=== PATIENT | female | born 1985 | race African-American/Black ===

== ENCOUNTER → 2017-07-14 | Outpatient (CLI) | payer MEDICAID | LOC: LAB 12:37 | PROVIDERS: ATTEND Nurse Practitioner Acute Care | DX: Z53.8 Procedure and treatment not carried out for other reasons (principal) ==

== ENCOUNTER 2017-12-31 02:28 | Emergency (ER) | payer MEDICAID ==
[2017-12-31] MEDS ORDERED: ACETAMINOPHEN 325 MG TABLET PO ONE (02:31)
[2017-12-31 02:36] VITALS: BP 106/69
--- NOTE | 2017-12-31 03:00 | ER Document Report ---
HPI - HPI Pain Level: 5 Notes: Patient is a 31-year-old female presents to the ED complaining of right great toe pain status post injury about 6 hours ago. Patient states that she was switched to a screening out when the window pane dropped and landed on her foot/ toe. Patient states that she has had swelling since then. Pain does not radiate. Patient states that she is still able to limp around and is weightbearing. Denies any drug allergies. No other concerns or complaints at this time. No other significant past medical history. Denies any headache, fever, URI, sore throat, chest pain, palpitations, syncope, cough, shortness of breath, wheeze, dyspnea, abdominal pain, nausea/vomiting/diarrhea, dysuria, hematuria, numbness/tingling, muscle paralysis/weakness, or rash. - ROS Systems Reviewed and Negative: Yes All other systems reviewed and negative - REPRODUCTIVE Reproductive: DENIES: : Past Medical History - Social History Smoking Status: Never Smoker Family History: Arthritis, CVA, DM, Hyperlipidemia, Hypertension, Malignancy, Thyroid Disfunction Pulmonary Medical History: Reports: Hx Asthma Endocrine Medical History: Reports: Hx Diabetes Mellitus Type 2 Past Surgical History: Reports: Hx Tubal Ligation - Immunizations Hx Diphtheria, Pertussis, Tetanus Vaccination: Yes - 2008 [facility] Provider Document - CONSTITUTIONAL Agree With Documented VS: Yes Notes: PHYSICAL EXAMINATION: GENERAL: Well-appearing, well-nourished and in no acute distress. LUNGS: Breath sounds clear to auscultation bilaterally and equal. No wheezes rales or rhonchi. HEART: Regular rate and rhythm without murmurs, rubs, gallops. Musculoskeletal: Rt foot/toe: + mild swelling and tenderness to the 1st MTP joint and 1st digit. LROM to passive/active flexion. Strength 5+/5. N/V intact distal. No other bony tenderness. Achilles intact. Extremities: No cyanosis, clubbing, or edema b/l. Peripheral pulses 2+. Capillary refill less than 3 seconds. NEUROLOGICAL: Normal speech, limping gait. Normal sensory, motor exams PSYCH: Normal mood, normal affect. SKIN: Warm, Dry, normal turgor, no rashes or lesions noted. - INFECTION CONTROL TRAVEL OUTSIDE OF THE [place] IN LAST 30 DAYS: No Course - Re-evaluation Re-evalutation: 06/02/18 03:28 Patient is an afebrile, well-hydrated, 32-year-old female who presents to the ED with right first digit pain of the foot status post crush injury. I suspect contusion. Vitals are acceptable. PE is otherwise unremarkable for any neurovascular compromise, obvious tendon/ligament rupture, obvious fracture/ dislocation, septic joint. X-ray was unremarkable for any acute pathology. Patient received Tylenol p.o. today. Postop shoe and crutches were provided. No other labs or imaging warranted at this time based on H&P. Recommend conservative measures for symptoms. rx for naproxen. Recheck with your PCM in 3 -5 days. Consider consult orthopedic/physical therapy. Return to the ED with any worsening/concerning symptoms otherwise as reviewed in discharge. Patient is in agreement. - Vital Signs Vital signs: Temp Pulse Resp BP Pulse Ox 97.9 F 94 17 106/69 99 12/31/17 02:35 12/31/17 02:35 12/31/17 02:35 12/31/17 02:35 12/31/17 02:35 Discharge - Discharge Clinical Impression: Toe pain, right Condition: Stable Disposition: HOME, SELF-CARE Instructions: Contusion ([facility]) Additional Instructions: Rest, Ice, Compression, Elevation Use crutches/shoe as directed Tylenol/ibuprofen as needed Light stretches daily Strength exercises as able Moist heat and massage may help F/u with your PCP in 3-5 days for a recheck Consider consult(s) with Orthopedics/physical therapy for ongoing/worsening symptoms Return to the ED with any worsening symptoms and/or development of fever, headache, chest pain, palpitations, syncope, shortness of breath, trouble breathing, abdominal pain, n/v/d, muscle weakness/paralysis, numbness/tingling, swelling, redness, or other worsening symptoms that are concerning to you. Prescriptions: Naproxen 500 mg PO BID PRN #30 tablet PRN Reason: Referrals: WILLARD KNUTSON NP [Primary Care Provider] - Follow up as needed [facility] [Provider Group] - Follow up as needed
--- NOTE | 2017-12-31 03:27 | RADIOLOGY REPORT (SQ) ---
EXAM DESCRIPTION: Right foot, 3 views CLINICAL HISTORY: rt toe pain s/p crush injury 1st digit COMPARISON: None. FINDINGS: 3 views of the right foot. No acute fracture or dislocation. Normal osseous mineralization. Dorsal soft tissue edema. Tarsals and metatarsals have appropriate alignment. IMPRESSION: No acute fracture or dislocation.
== END 2017-12-31 04:08 | disposition home or self-care (01) ==
LOC: ER 02:28
DX: S97.111A Crushing injury of right great toe, initial encounter (principal); M79.674 Pain in right toe(s); W20.8XXA Other cause of strike by thrown, projected or falling object, initial encounter; E11.9 Type 2 diabetes mellitus without complications; J45.909 Unspecified asthma, uncomplicated
CPT/HCPCS: 99283; 73630; J3490

== ENCOUNTER 2018-12-27 17:06 | Emergency (ER) | payer SELFPAY ==
[2018-12-27 18:11] VITALS: BP 111/70
--- NOTE | 2018-12-27 18:58 | ER Document Report ---
HPI - HPI Patient complains to provider of: vaginal pressure Time Seen by Provider: 12/27/18 18:49 Onset: Other - since tuesday Onset/Duration: Persistent Quality of pain: Pressure Severity: Severe Pain Level: 4 Context: Patient presents to the emergency department with complaints of pain and pressure in her vaginal area lots of pressure when urinating and lower back pain since past Tuesday. She has been taking Azo without relief of symptoms. She reports increased pain when she voids but otherwise feels like there is pressure like something is going to fall out of her vagina. She denies fever vomiting reports some nausea reports very little diarrhea. Denies vaginal discharge. Reports her vaginal area feels swollen. Associated Symptoms: None Exacerbated by: Other - voiding Relieved by: Denies Similar symptoms previously: No Recently seen / treated by doctor: No - URINARY Urinary: REPORTS: Urgency, Frequency - REPRODUCTIVE Reproductive: DENIES: : Past Medical History - General Information source: Patient Last Menstrual Period: 12/11/18 - Social History Smoking Status: Current Every Day Smoker Chew tobacco use (# tins/day): No Frequency of alcohol use: Occasional Drug Abuse: None Lives with: Family Family History: Arthritis, CVA, DM, Hyperlipidemia, Hypertension, Malignancy, Thyroid Disfunction Patient has suicidal ideation: No Patient has homicidal ideation: No Pulmonary Medical History: Reports: Hx Asthma Endocrine Medical History: Reports: Hx Diabetes Mellitus Type 2 Renal/ Medical History: Denies: Hx Peritoneal Dialysis Past Surgical History: Reports: Hx Tubal Ligation - Immunizations Hx Diphtheria, Pertussis, Tetanus Vaccination: Yes - 2008 [facility] Provider Document - CONSTITUTIONAL Agree With Documented VS: Yes Exam Limitations: No Limitations General Appearance: WD/WN, No Apparent Distress - INFECTION CONTROL TRAVEL OUTSIDE OF THE [place] IN LAST 30 DAYS: No - HEENT HEENT: Atraumatic, Normocephalic - NECK Neck: Normal Inspection, Supple. negative: Lymphadenopathy-Left, Lymphadenopathy-Right - RESPIRATORY Respiratory: Breath Sounds Normal, No Respiratory Distress - CARDIOVASCULAR Cardiovascular: Regular Rate, Regular Rhythm - GI/ABDOMEN Gastrointestinal: Abdomen Soft, Abdomen Non-Tender - REPRODUCTIVE Female Genitalia: Normal Inspection - BACK Back: Normal Inspection. negative: CVA Tenderness-Right, CVA Tenderness-Left - MUSCULOSKELETAL/EXTREMETIES Musculoskeletal/Extremeties: ALEXANDER JULIO - NEURO Level of Consciousness: Awake, Alert, Appropriate Motor/Sensory: No Motor Deficit - DERM Integumentary: Warm, Dry Course - Re-evaluation Re-evalutation: 12/27/18 18:57 Patient instructed on pending pelvic exam. 12/27/18 20:14 UA shows positive nitrite large amount of WBCs leukocytes. Wet mount shows BV instructed on positive UTI and BV. Patient reports she does not believe she has a STD and does not wish to wait for results. She will be contacted should she needs antibiotics. She was instructed on the importance of pushing fluids follow-up with the primary care next week for recheck she verbalized understanding to all instructions. Dictation of this chart was performed using voice recognition software; therefore, there may be some unintended grammatical errors. - Vital Signs Vital signs: Temp Pulse Resp BP Pulse Ox 98.4 F 88 16 111/70 97 12/27/18 18:09 12/27/18 18:09 12/27/18 18:09 12/27/18 18:09 12/27/18 18:09 Procedures - Pelvic Exam Pelvic exam Cultures obtained: Yes Wet prep obtained: Yes Herpes culture obtained: No POC sent to lab: No Foreign body removed: No Bimanual exam performed: Yes Witnessed by: DIOGO MACKAY Discharge - Discharge Clinical Impression: Vaginal irritation, Bacterial vaginosis UTI (urinary tract infection) Qualifiers: Urinary tract infection type: site unspecified Hematuria presence: with hematuria Qualified Code(s): N39.0 - Urinary tract infection, site not specified Condition: Stable Disposition: HOME, SELF-CARE Instructions: Metronidazole ([facility]), Nitrofurantoin ([facility]), Urinary Anesthetic Agent ([facility]), Urinary Tract Infection ([facility]), Vaginosis, Bacterial ([facility]) Additional Instructions: *You have been evaluated for pain while voiding, UTI, BV Your STD cultures are pending. You will be contacted should you need antibiotics. You may call the culture nurse at [phone] for results Tuesday through Tuesday 8-4 *Take medication as prescribed *Push fluids *Follow up with your primary care provider within one week *Plan urine recheck in one week *Return to ED for worsening condition, changes, needs Prescriptions: Metronidazole [Flagyl 500 mg Tablet] 500 mg PO BID #14 tablet Nitrofurantoin/Nitrofuran Mac [Macrobid 100 mg Capsule] 100 mg PO BID #20 capsule Phenazopyridine HCl [Pyridium 200 mg Tablet] 200 mg PO TID #15 tablet Referrals: WILLARD KNUTSON NP [NURSE PRACTITIONER] - Follow up in 1 week
[2018-12-27 19:29] LABS: APPEARANCE,URINE CLOUDY; BILIRUBIN,URINE NEGATIVE (NEGATIVE); COLOR,URINE AMBER; GLUCOSE, URINE NEGATIVE (NEGATIVE); KETONES,URINE NEGATIVE (NEGATIVE); LEUKOCYTE ESTERASE,URINE LARGE (NEGATIVE); NITRITE,URINE POSITIVE (NEGATIVE); PROTEIN,URINE 30 mg/dL (NEGATIVE); URINE SPECIFIC GRAVITY 1.018
[2018-12-27 19:46] LABS: BACTERIA (WET MOUNT) 4+ BACTERIA SEEN; EPITHELIALS (WET MOUNT) 4+ EPITHELIALS SEEN; T.VAGINALIS (WET MOUNT) NO TRICHOMONAS SEEN; WBCS (WET MOUNT) FEW WBCS SEEN; YEAST (WET MOUNT) NO YEAST SEEN
[2018-12-27] MEDS ORDERED: PHENAZOPYRIDINE HCL 200 MG TABLET PO ONE (19:48)
[2018-12-27] MEDS ORDERED: NITROFURANTOIN MONOHYD/M-CRYST 100 MG CAPSULE PO ONE (19:48)
[2018-12-27 21:14] LABS: CHLAM PCR NOT DETECTED (NOT DETECT); GON PCR NOT DETECTED (NOT DETECT)
== END 2018-12-27 20:21 | disposition home or self-care (01) ==
LOC: ER 17:06
DX: N76.0 Acute vaginitis (principal); B96.89 Other specified bacterial agents as the cause of diseases classified elsewhere; N39.0 Urinary tract infection, site not specified; R31.9 Hematuria, unspecified; F17.200 Nicotine dependence, unspecified, uncomplicated; E11.9 Type 2 diabetes mellitus without complications; J45.909 Unspecified asthma, uncomplicated
CPT/HCPCS: 99283; 87086; 87210; 81025; 87088; 81001; 87186; 87491; 87591; J3490; J8499

== ENCOUNTER 2019-04-12 18:58 | Emergency (ER) | payer SELFPAY ==
--- NOTE | 2019-04-12 20:08 | ER Document Report ---
HPI - HPI Patient complains to provider of: dysuria Time Seen by Provider: 04/12/19 20:08 Onset: Other Onset/Duration: Persistent Quality of pain: Pressure Severity: Severe Pain Level: 4 Context: This 34-year-old female presents emergency department with complaints of dysuria. Reports urinary frequency and pressure since last Tuesday. Reports she is taking some Azo and has had a little bit of relief. She has not taken any Azo since 2:00 today. Denies fever vomiting diarrhea but reports loose stool since Tuesday. Patient also reports that now her lower legs are hurting and she has some right flank pain. Associated Symptoms: None Exacerbated by: Denies Relieved by: Denies Similar symptoms previously: Yes Recently seen / treated by doctor: No - REPRODUCTIVE Reproductive: DENIES: : Past Medical History - General Information source: Patient Last Menstrual Period: march - Social History Smoking Status: Unknown if Ever Smoked Cigarette use (# per day): No Frequency of alcohol use: None Drug Abuse: None Lives with: Family Family History: Arthritis, CVA, DM, Hyperlipidemia, Hypertension, Malignancy, T hyroid Disfunction Pulmonary Medical History: Reports: Hx Asthma Renal/ Medical History: Denies: Hx Peritoneal Dialysis GI Medical History: Reports: Other - uti Past Surgical History: Reports: Hx Tubal Ligation - Immunizations Hx Diphtheria, Pertussis, Tetanus Vaccination: Yes - 2008 [facility] Provider Document - CONSTITUTIONAL Agree With Documented VS: Yes Exam Limitations: No Limitations General Appearance: WD/WN, No Apparent Distress - INFECTION CONTROL TRAVEL OUTSIDE OF THE [place] IN LAST 30 DAYS: No - HEENT HEENT: Atraumatic, Normocephalic - NECK Neck: Normal Inspection, Supple - RESPIRATORY Respiratory: Breath Sounds Normal, No Respiratory Distress - CARDIOVASCULAR Cardiovascular: Regular Rate - GI/ABDOMEN Gastrointestinal: Abdomen Soft, Abdomen Non-Tender - BACK Back: Normal Inspection - MUSCULOSKELETAL/EXTREMETIES Musculoskeletal/Extremeties: ALEXANDER JULIO - NEURO Level of Consciousness: Awake, Alert, Appropriate Motor/Sensory: No Motor Deficit - DERM Integumentary: Warm, Dry, No Rash Course - Re-evaluation Re-evalutation: 04/12/19 20:49 This 34-year-old female presents with complaints of urinary frequency and pressure when she voids. Reports symptoms since last Tuesday. Denies fever but reports some right flank pain lower leg pain. Patient does have a UTI positive nitrite. She was prescribed Macrobid and Pyridium. She was instructed on both medications, she is familiar with them. Also instructed on urine culture pending. She reports the Pyridium already helped her. Patient was instructed to return the emergency department for worsening symptoms fever concerns she verbalized understanding to all instructions. Dictation of this chart was performed using voice recognition software; therefore, there may be some unintended grammatical errors. 04/12/19 20:50 04/12/19 20:51 Urine Color YELLOW 04/12/19 20:18 Urine Appearance CLOUDY 04/12/19 20:18 Urine pH 7.0 (5.0-9.0) 04/12/19 20:18 Ur Specific [place] 1.019 04/12/19 20:18 Urine Protein 100 mg/dL (NEGATIVE) H 04/12/19 20:18 Urine Glucose (UA) NEGATIVE mg/dL (NEGATIVE) 04/12/19 20:18 Urine Ketones NEGATIVE mg/dL (NEGATIVE) 04/12/19 20:18 Urine Blood SMALL (NEGATIVE) H 04/12/19 20:18 Urine Nitrite POSITIVE (NEGATIVE) H 04/12/19 20:18 Ur Leukocyte Esterase MODERATE (NEGATIVE) H 04/12/19 20:18 Ur Squamous Epith Cells MODERATE /HPF 04/12/19 20:18 - Vital Signs Vital signs: Temp Pulse Resp BP Pulse Ox 98.7 F 81 18 106/71 98 04/12/19 19:19 04/12/19 19:19 04/12/19 19:19 04/12/19 19:19 04/12/19 19:19 Discharge - Discharge Clinical Impression: UTI (urinary tract infection) Qualifiers: Urinary tract infection type: site unspecified Hematuria presence: with hematuria Qualified Code(s): N39.0 - Urinary tract infection, site not specified Condition: Stable Disposition: HOME, SELF-CARE Instructions: Nitrofurantoin ([facility]), Urinary Anesthetic Agent ([facility]), Urinary Tract Infection ([facility]) Additional Instructions: *You have been evaluated for pain while voiding, UTI *Take medication as prescribed *Push fluids *Follow up with your primary care provider within one week for recheck *Return to ED for worsening condition, changes, needs Prescriptions: Nitrofurantoin Macrocrystal [Macrodantin] 100 mg PO BID #20 capsule Phenazopyridine HCl [Pyridium 200 mg Tablet] 200 mg PO TID #15 tablet
[2019-04-12] MEDS ORDERED: IBUPROFEN 800 MG TABLET PO ONE (20:18)
[2019-04-12] MEDS ORDERED: PHENAZOPYRIDINE HCL 200 MG TABLET PO ONE (20:18)
[2019-04-12 20:38] LABS: APPEARANCE,URINE CLOUDY; BILIRUBIN,URINE NEGATIVE (NEGATIVE); GLUCOSE, URINE NEGATIVE (NEGATIVE); KETONES,URINE NEGATIVE (NEGATIVE); LEUKOCYTE ESTERASE,URINE MODERATE (NEGATIVE); NITRITE,URINE POSITIVE (NEGATIVE); PROTEIN,URINE 100 mg/dL (NEGATIVE); URINE SPECIFIC GRAVITY 1.019
[2019-04-12 20:40] LABS: ADD MANUAL MICROSCOPIC YES; COLOR,URINE YELLOW
[2019-04-12 20:43] LABS: BACTERIA,URINE 4+ /HPF; RBC,URINE 0-1 /HPF; WBC,URINE 50-100 /HPF
[2019-04-12] MEDS ORDERED: NITROFURANTOIN MONOHYD/M-CRYST 100 MG CAPSULE PO ONE (20:45)
[2019-04-12 20:56] VITALS: BP 106/73
== END 2019-04-12 20:58 | disposition home or self-care (01) ==
LOC: ER 18:58
DX: N39.0 Urinary tract infection, site not specified (principal); Z98.51 Tubal ligation status
CPT/HCPCS: 99283; 87086; 81025; 87088; 81001; 87186; J3490; J8499

== ENCOUNTER 2020-05-27 16:54 | Emergency (ER) | payer SELFPAY ==
[2020-05-27 17:33] VITALS: BP 106/66
--- NOTE | 2020-05-27 17:43 | ER Document Report ---
HPI - HPI Time Seen by Provider: 05/27/20 17:21 Pain Level: 2 Notes: 35-year-old female presents to the emergency room today for lab upper chest wall pain that she is noticed for the last week or so. 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 She states when she pushes on her left rib, she feels pain. Denies any chest pain shortness of breath nausea vomiting, fevers or chills. Patient states when she is having a lot of pain at night when she pushes on it it is causing her to feel like its difficult to breath. states she tried some beers muscle pain with a little bit of relief. Patient is not on any control. She does smoke, last menstrual cycle was 05/02/2020, patient does not take control. Patient is able to reproduce the pain by pushing on her upper rib. Denies fevers, chills, chest pain,palpitations, shortness of breath, dyspnea, nausea, vomiting, diarrhea, abdominal pain, hematuria,blurred vision, double vision, loss of vision, speech changes, LH, dizziness, syncope, headaches, wheezing, ST, URI, neck pain, weakness, bowel or bladder dysfunction, saddle anesthesia, numbness or tingling in bilateral upper or lower extremities equally, muscle paralysis, weakness in bilateral upper or lower extremities equally or rash. Denies IV drug use. Recheck heart rate 86 MEDICATIONS: I agree with the patient medications as charted by the RN. ALLERGIES: I agree with the allergies as charted by the RN. PAST MEDICAL HISTORY/PAST SURGICAL HISTORY: Reviewed and agree as charted by RN. SOCIAL HISTORY: Reviewed and agree as charted by RN. FAMILY HISTORY: No significant familial comorbid conditions directly related to patient complaint EXAM: Reviewed vital signs as charted by RN. REVIEW OF SYSTEMS:reviewed vital signs by RN CONSTITUTIONAL : Denies fever, chills, or sweats. Denies recent illness. EENT: Denies eye, ear, throat, or mouth pain or symptoms. Denies nasal or sinus congestion or discharge. Denies throat, tongue, or mouth swelling or difficulty swallowing. CARDIOVASCULAR: Denies chest pain. Denies palpitations or racing or irregular heart beat. Denies ankle edema. RESPIRATORY: Reports left rib pain. denies cough, cold, or chest congestion. Denies shortness of breath, difficulty breathing, or wheezing. GASTROINTESTINAL: Denies abdominal pain or distention. Denies nausea, vomiting, or diarrhea. Denies blood in vomitus, stools, or per rectum. Denies black, tarry stools. Denies constipation. GENITOURINARY: Denies difficulty urinating, painful urination, burning, frequency, blood in urine, or discharge. FEMALE GENITOURINARY: Denies vaginal bleeding, heavy or abnormal periods, irregular periods. Denies vaginal discharge or odor. MUSCULOSKELETAL: Denies back or neck pain or stiffness. Denies joint pain or swelling. SKIN: Denies rash, lesions or sores. HEMATOLOGIC : Denies easy bruising or bleeding. LYMPHATIC: Denies swollen, enlarged glands. NEUROLOGICAL: Denies confusion or altered mental status. Denies passing out or loss of consciousness. Denies dizziness or lightheadedness. Denies headache. Denies weakness or paralysis or loss of use of either side. Denies problems with gait or speech. Denies sensory loss, numbness, or tingling. Denies seizures. PSYCHIATRIC: Denies anxiety or stress. Denies depression, suicidal ideation, or homicidal ideation. ALL OTHER SYSTEMS REVIEWED AND NEGATIVE. PHYSICAL EXAMINATION: GENERAL: Well-appearing, well-nourished and in no acute distress. HEAD: Atraumatic, normocephalic. EYES: Pupils equal round and reactive to light, extraocular movements intact, conjunctiva are normal. ENT: Nares patent, oropharynx clear without exudates. Moist mucous membranes. NECK: Normal range of motion, supple without lymphadenopathy LUNGS: Breath sounds clear to auscultation bilaterally and equal. No wheezes rales or rhonchi. Tenderness to left intercostal space between the fifth and seventh ribs. Step-off or ecchymosis noted. HEART: Regular rate and rhythm without murmurs ABDOMEN: Soft, nontender, nondistended abdomen. No guarding, no rebound. No masses appreciated. Female : deferred Musculoskeletal: Normal range of motion, no pitting or edema. No cyanosis. NEUROLOGICAL: Cranial nerves grossly intact. Normal speech, normal gait. Normal sensory, motor exams PSYCH: Normal mood, normal affect. SKIN: Warm, Dry, normal turgor, no rashes or lesions noted. Dictation was performed using V[employer] recognition software - CONSTITUTIONAL Constitutional: DENIES: Fever, Chills - REPRODUCTIVE Reproductive: DENIES: : Past Medical History - General Information source: Patient - Social History Smoking Status: Current Every Day Smoker Family History: Arthritis, CVA, DM, Hyperlipidemia, Hypertension, Malignancy, Thyroid Disfunction Patient has homicidal ideation: No Pulmonary Medical History: Reports: Hx Asthma Endocrine Medical History: Reports: Hx Diabetes Mellitus Type 2 Renal/ Medical History: Denies: Hx Peritoneal Dialysis Past Surgical History: Reports: Hx Tubal Ligation - Immunizations Hx Diphtheria, Pertussis, Tetanus Vaccination: Yes - 2008 [facility] Provider Document - CONSTITUTIONAL Agree With Documented VS: Yes Exam Limitations: No Limitations General Appearance: WD/WN - INFECTION CONTROL TRAVEL OUTSIDE OF THE [place] IN LAST 30 DAYS: No Course - Re-evaluation Re-evalutation: 05/27/20 18:58 Afebrile vital stable no distress. Nurses notes reviewed. X-ray of left rib negative for any acute fracture dislocation. Able to reproduce pain when I palpate her left ribs near the sixth seventh intercostal space, no ecchymosis noted on clinical examination. Discussed with patient that she likely has a musculoskeletal pull. Advised to not drive, drink or operate heavy machinery while taking narcotics or muscle relaxers as directed as an cause sedation impairment of cognitive function, use and Suprax as directed. Discussed splinting with coughing or sneezing. After performing a Medical Screening Examination, I estimate there is LOW risk for RUPTURED ESOPHAGUS, PNEUMOTHORAX, PULMONARY EMBOLISM, ACUTE CORONARY SYNDROME, OR THORACIC AORTIC DISSECTION, thus I consider the discharge disposition reasonable. I have reevaluated this patient multiple times and no significant life threatening changes are noted. The patient and I have discussed the diagnosis and risks, and we agree with discharging home with close follow-up. We also discussed returning to the Emergency Department immediately if new or worsening symptoms occur. We have discussed the symptoms which are most concerning (e.g., bloody sputum, worsening pain or shortness of breath) that necessitate immediate return. 05/27/20 19:00 - Vital Signs Vital signs: Temp Pulse Resp BP Pulse Ox 98.2 F 86 16 106/66 100 05/27/20 16:58 05/27/20 17:32 05/27/20 16:58 05/27/20 17:32 05/27/20 16:58 Discharge - Discharge Clinical Impression: Acute costochondritis Condition: Stable Disposition: HOME, SELF-CARE Instructions: Costochondritis ([facility]), Muscle Relaxers ([facility]) Additional Instructions: Your x-ray today was negative. You were given a spirometer today to help with your breathing make sure you take 10 deep breaths an hour and cough at least twice an hour. make sure splinting, applying counter pressure to where is hurting you to help when you cough or take a deep breath. Please follow-up with your primary care provider within the next 24 to 48 hours[address] not [address], drink alcohol or operate heavy machinery while taking narcotics or muscle relaxers as it can cause sedation or impairment of cognitive function. Return immediately for any new or worsening symptoms. Follow up with primary care provider, call tomorrow to make followup appointment. Prescriptions: Naproxen 500 mg PO BID #10 tablet Methocarbamol [Robaxin 500 mg Tablet] 500 mg PO QID PRN #15 tablet PRN Reason: Forms: Return to Work Referrals: SIMONA BARBER MD [ACTIVE STAFF] - Follow up in 3-5 days
--- NOTE | 2020-05-27 18:24 | RADIOLOGY REPORT (SQ) ---
EXAM DESCRIPTION: RIBS LEFT W/PA CHEST IMAGES COMPLETED DATE/TIME: 05/27/2020 5:48 pm REASON FOR STUDY: left rib pain x 2 weeks COMPARISON: None. TECHNIQUE: Frontal view of the chest and additional views of the left ribs acquired. NUMBER OF VIEWS: Three view. LIMITATIONS: None. FINDINGS: FRONTAL CXR: No pneumothorax. No pleural effusion. No atelectasis or infiltrates. RIBS: No acute displaced rib fractures. No lytic or blastic bony lesions. OTHER: No other significant finding. IMPRESSION: 1. NO PNEUMOTHORAX. 2. NO acute DISPLACED RIB FRACTURES. COMMENT: SITE OF TRAUMA/COMPLAINT MARKED/STAMP COMPLETED: YES. TECHNICAL DOCUMENTATION: JOB ID: [id number] 2010 [employer]- All Rights Reserved Reading location - IP/workstation name: [email or web address]
[2020-05-27] MEDS ORDERED: HYDROCODONE/ACETAMINOPHEN 5-325 MG (6 TAB/ER DISP) PO PRN (18:42)
== END 2020-05-27 19:00 | disposition home or self-care (01) ==
LOC: ER 16:54
DX: M94.0 Chondrocostal junction syndrome [Tietze] (principal); R07.89 Other chest pain; F17.200 Nicotine dependence, unspecified, uncomplicated; J45.909 Unspecified asthma, uncomplicated; E11.9 Type 2 diabetes mellitus without complications
CPT/HCPCS: 99283